=== PATIENT | male | born 1990 | race Caucasian/White ===

== ENCOUNTER 2017-01-01 15:23 | Emergency (ER) | payer SELFPAY ==
[2017-01-01 15:31] VITALS: BP 152/83
--- NOTE | 2017-01-01 16:15 | EDM.PDOC ---
ED HPI GENERAL MEDICAL PROBLEM - General Chief Complaint: Genitourinary Problem Stated Complaint: POSSIBLE STD EXPOSURE Time Seen by Provider: 01/01/17 15:37 Source of Information: Reports: Patient, RN Notes Reviewed - History of Present Illness INITIAL COMMENTS - FREE TEXT/NARRATIVE: 26-year-old male comes in wanting to be screened for chlamydia. He states that a girl that he was sexually active with a bit over a week ago tested positive for chlamydia last evening. He states she was evaluated at a hospital for a "different reason" but through the process of diagnostics was found to test positive for chlamydia. He has had no symptoms of burning discharge fever chills or any other unusual symptomatology. - Related Data Allergies Allergy/AdvReac Type Severity Reaction Status Date / Time Sulfa (Sulfonamide Allergy Hives Verified 01/01/17 15:34 Antibiotics) Home Meds: Home Meds . [No Known Home Meds] 01/01/17 [History] Cetirizine [ZyrTEC] 10 mg PO DAILY 01/01/17 [History] Past Medical History - Past Health History Medical/Surgical History: Denies Medical/Surgical History Social & Family History - Tobacco Use Smoking Status *Q: Never Smoker - Caffeine Use Caffeine Use: Reports: Coffee, Soda, Tea - Recreational Drug Use Recreational Drug Use: No ED ROS GENERAL - Review of Systems Review Of Systems: See Below Constitutional: Denies: Fever, Chills HEENT: Denies: Throat Pain Respiratory: Denies: Shortness of Breath Cardiovascular: Denies: Chest Pain GI/Abdominal: Denies: Abdominal Pain, Nausea, Vomiting : Denies: Discharge, Dysuria, Frequency, Pain, Urgency Musculoskeletal: Reports: No Symptoms Skin: Reports: No Symptoms Neurological: Reports: No Symptoms ED EXAM, RENAL/ - Physical Exam Exam: See Below General Appearance: Alert, No Apparent Distress Throat/Mouth: Normal Inspection Head: Normocephalic Neck: Supple Respiratory/Chest: No Respiratory Distress, Lungs Clear, Normal Breath Sounds Cardiovascular: Regular Rate, Rhythm Neurological: Alert, Oriented Skin Exam: Warm, Dry, Normal Color Course - Vital Signs Last Recorded V/S: Last Vital Signs Temp 97.8 F 01/01/17 15:30 Pulse 73 01/01/17 15:30 Resp 20 01/01/17 15:30 BP 152/83 H 10/01/17 15:30 Pulse Ox 99 01/01/17 15:30 - Orders/Labs/Meds Labs: Laboratory Tests 01/01/17 Range/Units 15:45 C trachomatis DNA (PCR) Not detected N gonorrhoeae DNA (PCR) Not detected Departure - Departure Time of Disposition: 18:01 Disposition: Home, Self-Care 01 Condition: Fair Clinical Impression: Exposure to STD - Discharge Information Instructions: Sexually Transmitted Disease Referrals: PCP,None [Primary Care Provider] - Forms: ED Department Discharge Additional Instructions: screening test for chlamydia and gonorrhea STD infection is negative at this time. Follow-up clinic as needed, return to ED as needed.
[2017-01-01 17:45] LABS: C. TRACHOMATIS BY PCR NOT DETECTED; N. GONORRHOEAE BY PCR NOT DETECTED
== END 2017-01-01 18:10 | disposition home or self-care (01) ==
LOC: JD.ED 15:23
DX: Z20.2 Contact with and (suspected) exposure to infections with a predominantly sexual mode of transmission (principal); Z88.2 Allergy status to sulfonamides; Z79.899 Other long term (current) drug therapy
CPT/HCPCS: 87491; 87591; 99282; 99283

== ENCOUNTER 2021-06-30 19:55 | Emergency (ER) | payer SELFPAY | END 2021-06-30 20:28 | disposition home or self-care (01) | LOC: JD.ED 19:55 → MERGE 19:55 → JD.ED 20:28 | DX: L73.9 Follicular disorder, unspecified (principal) | CPT/HCPCS: 99282 ==